=== PATIENT | female | born 1950 | race Caucasian/White ===

== ENCOUNTER 2021-07-22 15:19 | Emergency (ER) | payer SELFPAY ==
--- NOTE | 2021-07-22 15:24 | EDM.PDOC ---
ED HPI GENERAL MEDICAL PROBLEM - General Chief Complaint: General Stated Complaint: MEDICAL CLEARANCE FOR LONG TERM Time Seen by Provider: 07/22/21 15:21 Source of Information: Reports: Patient History Limitations: Reports: No Limitations - History of Present Illness INITIAL COMMENTS - FREE TEXT/NARRATIVE: HISTORY AND PHYSICAL: History of present illness: Patient is a 70-year-old female who presents to the emergency room with law enforcement for medical screening exam. Patient offers no current complaints or concerns. Patient states he is a daily drinker, last drink was this morning. He is alert, oriented, answering questions appropriately and ambulatory without assistance. Patient denies any fever, chills, headache, change in vision, syncope or near syncope. Denies any chest pain, back pain, shortness of breath or cough. Denies any GI or symptoms. Patient has been eating and drinking appropriately. Denies any drug abuse. Review of systems: As per history of present illness and below otherwise all systems reviewed and negative. Past medical history: As per history of present illness and as reviewed below otherwise noncontributory. Surgical history: As per history of present illness and as reviewed below otherwise noncontributory. Social history: See social history for further information Family history: As per history of present illness and as reviewed below otherwise noncontributory. Physical exam: General: Well developed and well nourished. Alert and orientated x 3. Answering questions appropriately. Nontoxic in appearance and in no acute distress. Vital signs are stable and have been reviewed by me. Nursing notes were reviewed. Accompanied by law enforcement. HEENT: Atraumatic, normocephalic, pupils equal and reactive bilaterally, ne gative for conjunctival pallor or scleral icterus, mucous membranes moist, trachea midline. No drooling or trismus noted. No meningeal signs. No hot potato voice noted. Lungs: Clear to auscultation, breath sounds equal bilaterally. Normal work of breathing, no accessory muscles used. Heart: S1S2, regular rate and rhythm without overt murmur Abdomen: Soft, nondistended, nontender. Negative for masses or costovertebral tenderness. Skin: Intact, warm, dry. No lesions or rashes noted. Hematologic: No petechiae or purpra. Mucosa appropriate color and normal nail bed color and refill. Extremities: Ambulatory, moves all extremities per self without difficulty or deficits. Neurovascular unremarkable. Neuro: Awake, alert, oriented. Cranial nerves II through XII unremarkable. Cerebellum unremarkable. Motor and sensory unremarkable throughout. Exam nonfocal. Psychiatric: Mood and affect are appropriate. Normal thought process. Answering questions appropriately. Please note that the patient was seen and evaluated during the 2019 SARS-CoV-2 novel coronavirus pandemic period. Community viral transmission is ongoing at time of this encounter and the emergency department is operating under pandemic response procedures. Medical Decision Making: Law enforcement has no specific concerns for today's ER visit. I have talked with the patient and personal injury law specialist about today's ER visit, in addition to providing specific details for plan of care. Reassessment at the time of disposition demonstrates that the patient is in no acute distress. The patient is stable for discharge, counseling was provided and we discussed in great detail signs and symptoms that would prompt them to return to the Emergency Department. Medication, follow up and supportive care measures were reviewed and discussed. Voices understanding and is agreeable to plan of care. Denies any further questions or concerns at this time. Diagnostics: Blood glucose Therapeutics: None Prescription: None Impression: Encounter for medical screening Plan: 1. Today your physical exam and vital signs are within normal limits. 2. We encourage you to follow up with your primary care provider and/or recommended specialist in the next few days for re-evaluation and further care/management. 3. If you should develop symptoms or feel the need to be evaluated in the emergency department - please feel free to return or call 911 if necessary. Definitive disposition and diagnosis as appropriate pending reevaluation and review of above. ED ROS GENERAL - Review of Systems Review Of Systems: Comprehensive ROS is negative, except as noted in HPI. ED EXAM, GENERAL - Physical Exam Exam: See Below (See dictation) Course - Orders/Labs/Meds Orders: Active Orders 24 hr Category Date Time Status Blood Glucose Check, Bedside [RC] ONETIME Care 07/22/21 15:23 Active Departure - Departure Time of Disposition: 16:10 Disposition: Home, Self-Care 01 Clinical Impression: Encounter for medical screening examination - Discharge Information Instructions: Medical Screening Exam Referrals: PCP,None [Primary Care Provider] - Forms: ED Department Discharge Additional Instructions: The following information is given to patients seen in the emergency department who are being discharged to home. This information is to outline your options for follow-up care. We provide all patients seen in our emergency department with a follow-up referral. The need for follow-up, as well as the timing and circumstances, are variable depending upon the specifics of your emergency department visit. If you don't have a primary care physician on staff, we will provide you with a referral. We always advise you to contact your personal physician following an emergency department visit to inform them of the circumstance of the visit and for follow-up with them and/or the need for any referrals to a consulting specialist. The emergency department will also refer you to a specialist when appropriate. This referral assures that you have the opportunity for follow-up care with a specialist. All of these measure are taken in an effort to provide you with optimal care, which includes your follow-up. Under all circumstances we always encourage you to contact your private physician who remains a resource for coordinating your care. When calling for follow-up care, please make the office aware that this follow-up is from your recent emergency room visit. If for any reason you are refused follow-up, please contact the [facility] Emergency Department at and asked to speak to the emergency department charge nurse. [facility] [address] [place] [address] [place] [address] Thank you for choosing the [facility] emergency department in [place] for your medical needs today. It was a pleasure caring for you. Today you were seen in the emergency department for medical screening exam. 1. Today your physical exam and vital signs are within normal limits. 2. We encourage you to follow up with your primary care provider and/or recommended specialist in the next few days for re-evaluation and further care/management. 3. If you should develop symptoms or feel the need to be evaluated in the emergency department - please feel free to return or call 911 if necessary. - My Orders Last 24 Hours: My Active Orders 07/22/21 15:23 Blood Glucose Check, Bedside [RC] ONETIME - Assessment/Plan Last 24 Hours: My Active Orders 07/22/21 15:23 Blood Glucose Check, Bedside [RC] ONETIME
== END 2021-07-22 16:20 | disposition home or self-care (01) ==
LOC: MW.ED 15:19
DX: Z13.9 Encounter for screening, unspecified (principal)
CPT/HCPCS: 82947; 99283

== ENCOUNTER 2022-05-01 05:55 | Emergency (ER) | payer MEDICARE, OTHER ==
[2022-05-01] MEDS ORDERED: Folic Acid 1 MG Tab PO ONE (06:16)
[2022-05-01] MEDS ORDERED: Thiamine 100 MG Tab PO ONE (06:16)
[2022-05-01 06:40] LABS: BLOOD UREA NITROGEN,BUN 7 mg/dL (7.0-18.0); CHLORIDE,CL 103 mmol/L (98-107); GLUCOSE RANDOM 93 mg/dL (74-106); POTASSIUM,K 3.1 mmol/L (3.5-5.1); SODIUM,NA 143 mmol/L (136-148)
[2022-05-01 06:42] LABS: ESTIMATED GFR 91 mL/min (>60)
[2022-05-01] MEDS ORDERED: Potassium Bicarbonate 25 MEQ Tab.EFF PO STA (06:44)
[2022-05-01] MEDS ORDERED: Magnesium Oxide 400 MG Tab PO ONE (06:45)
[2022-05-01] MEDS ORDERED: Potassium Chloride 10% 20 MEQ/15 ML Soln 30 ML UD Cup PO ONE (07:27)
[2022-05-01] MEDS ORDERED: chlordiazePOXIDE 25 MG Cap PO ONE (10:21)
== END 2022-05-01 10:53 | disposition home or self-care (01) ==
LOC: MW.ED 05:55 → EDSEX 05:55 → MW.ED 10:53
DX: F10.920 Alcohol use, unspecified with intoxication, uncomplicated (principal); E87.6 Hypokalemia; E83.42 Hypomagnesemia; Z79.899 Other long term (current) drug therapy
CPT/HCPCS: 36415; 80053; 80307; 83735; 85025; 93005; 99284; A9270; 93010

== ENCOUNTER 2022-05-04 22:34 | Emergency (ER) | payer MEDICARE, MEDICAID ==
[2022-05-05] MEDS ORDERED: Sodium Chloride 0.9% 10 ML Syringe FLUSH PRN (01:46)
[2022-05-05] MEDS ORDERED: Sodium Chloride 0.9% 2.5 ML Syringe FLUSH PRN (01:46)
[2022-05-05 03:22] LABS: CARBON DIOXIDE,CO2 22.9 mmol/L (21.0-32.0); POTASSIUM,K 3.2 mmol/L (3.5-5.1)
[2022-05-05] MEDS ORDERED: Iopamidol 755 MG/ML 500 ML Multipack Bottle IVPUSH STA (04:25)
[2022-05-05] MEDS ORDERED: Potassium Chloride 10% 20 MEQ/15 ML Soln 30 ML UD Cup PO ONE (04:59)
[2022-05-05] MEDS ORDERED: Magnesium Oxide 400 MG Tab PO ONE (04:59)
[2022-05-05] MEDS ORDERED: Lidocaine 5% 700 MG Patch TRDERM ONE (05:00)
== END 2022-05-05 05:30 | disposition home or self-care (01) ==
LOC: MW.ED 22:34
DX: S22.42XA Multiple fractures of ribs, left side, initial encounter for closed fracture (principal); K70.10 Alcoholic hepatitis without ascites; F10.129 Alcohol abuse with intoxication, unspecified; E87.6 Hypokalemia; E83.42 Hypomagnesemia; W18.30XA Fall on same level, unspecified, initial encounter
CPT/HCPCS: 36415; 71045; 74177; 80053; 83735; 85025; 99284; A9270; Q9967; 99285

== ENCOUNTER 2022-10-17 12:35 | Emergency (ER) | payer MEDICARE | END 2022-10-17 14:03 | disposition home or self-care (01) | LOC: MW.ED 12:35 | DX: Z02.89 Encounter for other administrative examinations (principal); F10.129 Alcohol abuse with intoxication, unspecified | CPT/HCPCS: 99283 ==

== ENCOUNTER 2022-10-18 06:15 | Emergency (ER) | payer MEDICARE ==
[2022-10-18] MEDS ORDERED: Sodium Chloride 0.9% 2.5 ML Syringe FLUSH PRN (07:25)
[2022-10-18] MEDS ORDERED: Ondansetron 4 MG/2 ML SDV IVPUSH ONE (07:25)
[2022-10-18] MEDS ORDERED: Sodium Chloride 0.9% 10 ML Syringe FLUSH PRN (07:25)
[2022-10-18] MEDS ORDERED: Sodium Chloride 0.9% 1,000 ML IV ONE (07:25)
[2022-10-18] MEDS ORDERED: LORazepam 2 MG/ML SDV IVPUSH ONE (07:27)
[2022-10-18] MEDS ORDERED: Folic Acid 1 MG Tab PO ONE (07:28)
[2022-10-18] MEDS ORDERED: Thiamine 200 MG/2 ML MDV IVPUSH ONE (07:28)
[2022-10-18 09:14] LABS: BLOOD UREA NITROGEN,BUN 6 mg/dL (7.0-18.0); CARBON DIOXIDE,CO2 28.5 mmol/L (21.0-32.0); CHLORIDE,CL 103 mmol/L (98-107); GLUCOSE RANDOM 113 mg/dL (74-106); LIPASE 129 U/L (73-393); POTASSIUM,K 3.3 mmol/L (3.5-5.1); SODIUM,NA 141 mmol/L (136-148)
[2022-10-18 09:15] LABS: ESTIMATED GFR 99 mL/min (>60)
[2022-10-18] MEDS ORDERED: Magnesium Oxide 400 MG Tab PO ONE (09:33)
[2022-10-18] MEDS ORDERED: Potassium Chloride 20 MEQ Tab.ER PO ONE (09:33)
== END 2022-10-18 10:10 | disposition home or self-care (01) ==
LOC: MW.ED 06:15
DX: E83.42 Hypomagnesemia (principal); Z79.899 Other long term (current) drug therapy
CPT/HCPCS: 36415; 71045; 80053; 80307; 81003; 83690; 83735; 84443; 84484; 85025; 93005; 96361; 96374; 96375; 99285; A9270; J2060; J2405; J3411; J3490; J7030